=== PATIENT | female | born 2000 ===

== ENCOUNTER 2022-08-04 11:28 | Emergency (ER) | payer MEDICARE, MEDICAID ==
[~2022-08-04] VITALS: Ht 149.8 cm; Wt 74.1 kg
--- NOTE | 2022-08-04 11:57 | ED Abdominal Pain ---
General Stated Complaint: KIDNEY STONE/RT SIDE PAIN History of Present Illness Date Seen by Provider: Aug 04, 2022 Time Seen by Provider: 11:55 Initial Comments Patient presents to the emergency department with right sided flank pain. Had CT scan done on Tuesday and it showed that she had 3mm x 6mm stone. Mother has been occasionally giving her Tylenol at home. Is concerned because her pain is not controlled. Mother states " I don't really have anything at home to give her for pain." Vomited a few times last night due to the pain that she was having. Called her PCP office today and they started her on Cipro. Timing/Duration: 1 Week (1-2 weeks) Severity/Quality: Moderate Location: Flank (right) Radiation: No Radiation Activities at Onset: None Modifying Factors: Improves With Resting (JO ANN DING APRN) Allergies and Home Medications Allergies Coded Allergies: No Known Drug Allergies (Unverified , 08/04/22) Patient Home Medication List Home Medication List Reviewed: Yes (JO ANN DING APRN) Ondansetron (Ondansetron Odt) 4 Mg Tab.rapdis, 4 MG SL Q4H PRN for NAUSEA/VOMITING Prescribed by: Jo Ann Ding on 08/04/22 1304 Tamsulosin HCl (Flomax) 0.4 Mg Cap, 0.4 MG PO DAILY Prescribed by: Jo Ann Ding on 08/04/22 1304 Tramadol HCl (Tramadol HCl) 50 Mg Tablet, 50 MG PO TID PRN for PAIN-MODERATE (5- 7) Prescribed by: Jo Ann Ding on 08/04/22 1304 Review of Systems Review of Systems Constitutional: No chills, No diaphoresis, No dizziness, No fever, No weakness Respiratory: Denies Cough, Denies Shortness of Air Cardiovascular: Denies Chest Pain, Denies Palpitations Gastrointestinal: Denies Abdominal Pain, Denies Diarrhea; Nausea, Vomiting Genitourinary: Denies Burning, Denies Frequency; Flank Pain (right), Pain; Denies Urgency Musculoskeletal: back pain (right); No muscle pain Skin: no symptoms reported (JO ANN DING APRN) All Other Systems Reviewed Negative Unless Noted: Yes (JO ANN DING APRN) Past [facility] Hx Family Medical History Reviewed Nursing Family Hx (JO ANN DING APRN) Physical Exam Vital Signs Vital Signs - First Documented 08/04/22 11:55 Temp 36.2 Pulse 101 Resp 18 B/P (MAP) 123/83 (96) Pulse Ox 99 O2 Delivery Room Air (REBEKAH AQUINO MD) Vital Signs Capillary Refill : (JO ANN DING APRN) Height/Weight/BMI Height: '" Weight: lbs. oz. kg; BMI Method: General Appearance: WD/WN, no apparent distress Neck: non-tender, full range of motion, supple, normal inspection Respiratory: chest non-tender, lungs clear, normal breath sounds, no respiratory distress, no accessory muscle use Cardiovascular: regular rate, rhythm, no edema Gastrointestinal: normal bowel sounds, non tender, soft Back: CVA tenderness (R) (very mild); No CVA tenderness (L) Neurologic/Psychiatric: alert, normal mood/affect, oriented x 3 Skin: normal color, warm/dry (JO ANN DING APRN) Progress/Results/Core Measures Results/Orders Lab Results Laboratory Tests Test 08/04/22 12:00 08/04/22 12:01 Range/Units White Blood Count 9.1 4.3-11.0 10^3/uL Red Blood Count 4.88 3.80-5.11 10^6/uL Hemoglobin 14.0 11.5-16.0 g/dL Hematocrit 43 35-52 % Mean Corpuscular Volume 89 80-99 fL Mean Corpuscular Hemoglobin 29 25-34 pg Mean Corpuscular Hemoglobin Concent 32 32-36 g/dL Red Cell Distribution Width 13.2 10.0-14.5 % Platelet Count 268 130-400 10^3/uL Mean Platelet Volume 10.3 9.0-12.2 fL Immature Granulocyte % (Auto) 0 % Neutrophils (%) (Auto) 68 42-75 % Lymphocytes (%) (Auto) 24 12-44 % Monocytes (%) (Auto) 6 0-12 % Eosinophils (%) (Auto) 1 0-10 % Basophils (%) (Auto) 0 0-10 % Neutrophils # (Auto) 6.2 1.8-7.8 10^3/uL Lymphocytes # (Auto) 2.2 1.0-4.0 10^3/uL Monocytes # (Auto) 0.6 0.0-1.0 10^3/uL Eosinophils # (Auto) 0.1 0.0-0.3 10^3/uL Basophils # (Auto) 0.0 0.0-0.1 10^3/uL Immature Granulocyte # (Auto) 0.0 0.0-0.1 10^3/uL Sodium Level 138 135-145 MMOL/L Potassium Level 2.9 L 3.6-5.0 MMOL/L Chloride Level 103 98-107 MMOL/L Carbon Dioxide Level 26 21-32 MMOL/L Anion Gap 9 5-14 MMOL/L Blood Urea Nitrogen 8 7-18 MG/DL Creatinine 0.82 0.60-1.30 MG/DL Estimat Glomerular Filtration Rate 104 BUN/Creatinine Ratio 10 Glucose Level 100 70-105 MG/DL Calcium Level 9.5 8.5-10.1 MG/DL Corrected Calcium 9.5 8.5-10.1 MG/DL Total Bilirubin 0.4 0.1-1.0 MG/DL Aspartate Amino Transf (AST/SGOT) 11 5-34 U/L Alanine Aminotransferase (ALT/SGPT) 12 0-55 U/L Alkaline Phosphatase 66 40-136 U/L Total Protein 7.2 6.4-8.2 GM/DL Albumin 4.0 3.2-4.5 GM/DL Urine Color YELLOW Urine Clarity CLEAR Urine pH 5.5 5-9 Urine Specific Pr[place] >=1.030 1.016-1.022 Urine Protein 1+ H NEGATIVE Urine Glucose (UA) NEGATIVE NEGATIVE Urine Ketones TRACE H NEGATIVE Urine Nitrite NEGATIVE NEGATIVE Urine Bilirubin NEGATIVE NEGATIVE Urine Urobilinogen 0.2 < = 1.0 MG/DL Urine Leukocyte Esterase TRACE H NEGATIVE Urine RBC (Auto) 3+ H NEGATIVE Urine RBC 10-25 H /HPF Urine WBC 5-10 H /HPF Urine Squamous Epithelial Cells 2-5 /HPF Urine Crystals NONE /LPF Urine Bacteria MODERATE H /HPF Urine Casts NONE /LPF Urine Mucus NEGATIVE /LPF Urine Culture Indicated YES (REBEKAH AQUINO MD) My Orders Orders - REBEKAH AQUINO MD Ua Culture If Indicated (08/04/22 11:45) Urine Culture (08/04/22 12:01) (REBEKAH AQUINO MD) Medications Given in ED Current Medications Medications Dose Ordered Sig/Isaac Route Start Time Stop Time Status Last Admin Dose Admin Ketorolac Tromethamine 30 mg ONCE ONCE IVP 08/04/22 12:30 08/04/22 12:32 DC 08/04/22 12:40 30 MG Ondansetron HCl 4 mg ONCE ONCE IVP 08/04/22 12:30 08/04/22 12:32 DC 08/04/22 12:40 4 MG Potassium Chloride 40 meq ONCE ONCE PO 08/04/22 12:30 08/04/22 12:32 DC 08/04/22 12:39 40 MEQ (REBEKAH AQUINO MD) Vital Signs/I&O 08/04/22 08/04/22 11:55 13:16 Temp 36.2 36.2 Pulse 101 101 Resp 18 18 B/P (MAP) 123/83 (96) 123/83 Pulse Ox 99 99 O2 Delivery Room Air Room Air (REBEKAH AQUINO MD) Progress Progress Note : Progress Note Patient presents to the ER with known kidney stone from CT scan that she had on Tuesday. Family reports that they have not been able to control the pain that she is in. Has given her two doses of Tylenol over the past several days. Was vomiting last night due to pain. Called the PCP office and they told her to come to the ER. They also prescribed her Cipro today. 1300: Spoke to patient and parent in regards to labs. Will send home with nausea and pain medication along with Flomax. Instructed to follow up with Urology. Already has Cipro and instructed to continue that as directed. Reasons to return to the ER were discussed with parent and patient. (JO ANN DING APRN) Departure Impression Primary Impression: Calculus of kidney Additional Impression: Hypokalemia Disposition: HOME, SELF-CARE Condition: Stable Departure-Patient Inst. Decision time for Depature: 13:00 (JO ANN DING APRN) Referrals: [facility] (PCP/Family) Primary Care Physician JESUS CORDOBA MD Patient Instructions: Kidney Stone, Adult ED Add. Discharge Instructions: 1. Home and rest. 2. Push fluids. 3. Follow up with Urology for further treatment of kidney stone. 4. Follow up with PCP as needed. 5. Continue Cipro as previously prescribed. 6. Flomax as directed until finished. 7. Zofran as needed for nausea. 8. Tramadol as needed for severe pain. 9. Return here if worse or concerns. Scripts Tramadol HCl (Tramadol HCl) 50 Mg Tablet 50 MG PO TID PRN for PAIN-MODERATE (5-7), #10 TAB Prov: JO ANN DING APRN 08/04/22 Tamsulosin HCl (Flomax) 0.4 Mg Cap 0.4 MG PO DAILY, #14 CAP Prov: JO ANN DING APRN 08/04/22 Ondansetron (Ondansetron Odt) 4 Mg Tab.rapdis 4 MG SL Q4H PRN for NAUSEA/VOMITING, #20 TAB Prov: JO ANN DING APRN 08/04/22 ATTENDING PHYSICIAN NOTE: I was physically present as attending physician in the emergency department during the care of this patient, but I was not directly involved in the decision making or delivery of care for this patient. (REBEKAH AQUINO MD) JO ANN DING APRN Aug 04, 2022 11:57 REBEKAH AQUINO MD Aug 04, 2022 19:51
[2022-08-04 12:08] LABS: BASOPHILS % (AUTO) 0 % (0-10); EOSINOPHILS # (AUTO) 0.1 10^3/uL (0.0-0.3); EOSINOPHILS % (AUTO) 1 % (0-10); HEMATOCRIT 43 % (35-52); LYMPHOCYTES # (AUTO) 2.2 10^3/uL (1.0-4.0); LYMPHOCYTES % (AUTO) 24 % (12-44); MEAN CORPUSCULAR HEMOGLOBIN 29 pg (25-34); MEAN CORPUSCULAR HGB CONC 32 g/dL (32-36); MEAN CORPUSCULAR VOLUME 89 fL (80-99); MEAN PLATELET VOLUME 10.3 fL (9.0-12.2); MONOCYTES # (AUTO) 0.6 10^3/uL (0.0-1.0); MONOCYTES % (AUTO) 6 % (0-12); NEUTROPHILS # (AUTO) 6.2 10^3/uL (1.8-7.8); NEUTROPHILS % (AUTO) 68 % (42-75); PLATELET COUNT 268 10^3/uL (130-400); WHITE BLOOD COUNT 9.1 10^3/uL (4.3-11.0)
[2022-08-04 12:10] LABS: BILIRUBIN,URINE NEGATIVE (NEGATIVE); CLARITY,URINE CLEAR; COLOR,URINE YELLOW; GLUCOSE, URINE (UA) NEGATIVE (NEGATIVE); KETONES,URINE TRACE (NEGATIVE); LEUKOCYTE ESTERASE ,URINE TRACE (NEGATIVE); NITRITE,URINE NEGATIVE (NEGATIVE); PH,URINE 5.5 (5-9); PROTEIN,URINE 1+ (NEGATIVE)
[2022-08-04 12:17] LABS: BACTERIA,URINE MODERATE /HPF
[2022-08-04 12:24] LABS: BILIRUBIN,TOTAL 0.4 MG/DL (0.1-1.0); CALCIUM 9.5 MG/DL (8.5-10.1); CREATININE SERUM 0.82 MG/DL (0.60-1.30); POTASSIUM 2.9 MMOL/L (3.6-5.0); TOTAL PROTEIN 7.2 GM/DL (6.4-8.2)
[2022-08-04] MEDS ORDERED: KETOROLAC 30 MG/ML VIAL IVP ONE (12:30)
[2022-08-04] MEDS ORDERED: NS IV 1000 ML 1,000 ML IV SCH (12:30)
[2022-08-04] MEDS ORDERED: KCL 20 MEQ TAB (K-DUR) PO ONE (12:30)
[2022-08-04] MEDS ORDERED: ONDANSETRON 4 MG/2 ML (SDV) Z0FRAN IVP ONE (12:30)
[2022-08-04] MEDS ORDERED: TMSL.4C PO (13:04)
[2022-08-04] MEDS ORDERED: ONDA4TAB11 SL (13:04)
[2022-08-04] MEDS ORDERED: TRAM50TA3 PO (13:04)
[2022-08-04 13:16] VITALS: BP 123/83
== END 2022-08-04 13:17 | disposition home or self-care (01) ==
LOC: EDUNIT# 11:28 → ER 11:32
DX: N20.0 Calculus of kidney (principal); E87.6 Hypokalemia
CPT/HCPCS: 36415; 80053; 81000; 85025; 87088; 99283